=== PATIENT | female | born 1965 | race Caucasian/White ===

== ENCOUNTER 2016-08-29 11:30 | Emergency (ER) | payer MEDICAID ==
[2016-08-29 11:38] VITALS: BP 141/78
--- NOTE | 2016-08-29 12:21 | ER Document Report ---
HPI - HPI Patient complains to provider of: hip pain Pain Level: 5 Context: Patient is a 51-year-old female presents complaining of left hip pain as well as left lower back pain. Patient states that she was diagnosed with osteoarthritis with fibromyalgia and lupus. She's been following with hematology and her primary care physician. She states that [id number] Tylenol arthritis for her pain. States she is allergic to nonsteroidals. Patient able to ambulate but with limp otherwise stable to bear weight. He shouldn't presents with her medical records from her evaluation with her other physicians today. Show evidence of mild osteoarthritis as well as SI joint arthritis. Patient states that previously for this she was treated with cortisone injections with a recreation officer back in [place]. Patient states she' s been here for about 2 years and has not been giving her cortisone injections in his hip pain is gotten worse over the past 6 months. - REPRODUCTIVE Reproductive: DENIES: : - DERM Skin Color: Normal Past Medical History - Social History Smoking Status: Never Smoker Family History: Reviewed & Not Pertinent Patient has suicidal ideation: No Patient has homicidal ideation: No - Past Medical History Cardiac Medical History: Denies: Hx Coronary Artery Disease, Hx Heart Attack, Hx Hypertension Pulmonary Medical History: Reports: Hx Asthma - Allergic reaction asthma Denies: Hx Bronchitis, Hx COPD, Hx Pneumonia Neurological Medical History: Denies: Hx Cerebrovascular Accident, Hx Seizures Renal/ Medical History: Denies: Hx Peritoneal Dialysis Musculoskeltal Medical History: Reports Hx Arthritis - Spine, joints - Immunizations Immunizations up to date: Yes Hx Diphtheria, Pertussis, Tetanus Vaccination: Yes Vertical Provider Document - CONSTITUTIONAL Agree With Documented VS: Yes Exam Limitations: No Limitations General Appearance: WD/WN, No Apparent Distress Notes: PHYSICAL EXAM GENERAL: Alert, interacts well. HEAD: Normocephalic, atraumatic. EYES: Pupils equal, round, and reactive to light. Extraocular movements intact. ENT: Oral mucosa moist, tongue midline. NECK: Full range of motion. Supple. Trachea midline. LUNGS: Clear to auscultation bilaterally, no wheezes, rales, or rhonchi. No respiratory distress. HEART: Regular rate and rhythm. No murmurs, gallops, or rubs. ABDOMEN: Soft, nondistended, nontender. No guarding, rebound, or rigidity.. Bowel sounds present in all 4 quadrants. EXTREMITIES: Moves all 4 extremities spontaneously. No edema, radial and dorsalis pedis pulses 2/4 bilaterally. No cyanosis. Strength 5 out of 5 in bilateral lower extremities. Patient able to ambulate but with pain in her left hip. Moderate pain to palpation. No evidence of deformity, leg shortening. NEUROLOGICAL: Alert and oriented x4. Normal speech. PSYCH: Normal affect, normal mood. SKIN: Warm, dry, normal turgor. No rashes or lesions noted. - INFECTION CONTROL TRAVEL OUTSIDE OF THE U.S. IN LAST 30 DAYS: No - RESPIRATORY O2 Sat by Pulse Oximetry: 96 Course - Re-evaluation Re-evalutation: 08/29/16 13:56 Patient is a 51-year-old female presents with chronic leg pain. Has been diagnosed with history of osteoarthritis, fibromyalgia and lupus. She is previously required cortisone injections from rheumatology to help manage her pain. Discussed with patient that we do not manage chronic pain in the emergency department and that she needs to follow up with her primary care provider. Given the patient has not had any new injury to this hip, she has pretty presented with an x-ray supporting Tari arthritis of this hip no further imaging is required to the emergency department today. - Vital Signs Vital signs: Temp Pulse Resp BP Pulse Ox 98.2 F 100 18 141/78 H 96 08/29/16 11:37 08/29/16 11:37 08/29/16 11:37 08/29/16 11:37 08/29/16 11:37 Discharge - Discharge Clinical Impression: Hip pain, chronic Condition: Good Disposition: HOME, SELF-CARE Instructions: Osteoarthritis ([facility]), Fibromyalgia ([facility]) Additional Instructions: -Please be sure to follow-up with your recreation officer, primary care physician -You need to make an appointment to be evaluated by orthopedics (Dr. Sergio Arnold ) and pain management (Dr. Reena Jimenez) -Please discuss with your fitness center about developing a program for low impact hip and low back strengthening Forms: Elevated Blood Pressure Referrals: JEREMÍAS JONES MD [ACTIVE STAFF] - Follow up as needed VALERY JIMENEZ MD [ACTIVE STAFF] - Follow up as needed (Pain management) SERGIO ARNOLD MD [ACTIVE STAFF] - Follow up as needed (Orthopedics)
== END 2016-08-29 12:29 | disposition home or self-care (01) ==
LOC: ER 11:30
DX: G89.29 Other chronic pain (principal); M25.552 Pain in left hip; M54.5 Low back pain
CPT/HCPCS: 99283

== ENCOUNTER 2016-11-22 19:48 | Emergency (ER) | payer SELFPAY ==
[2016-11-22] MEDS ORDERED: METHYLPREDNISOLONE INJ 125 MG/2 ML SDV IM ONE (21:21)
[2016-11-22] MEDS ORDERED: HYDROMORPHONE HCL INJ/PF 2 MG/ML AMPULE IM ONE (21:21)
--- NOTE | 2016-11-22 21:23 | ER Document Report ---
HPI - HPI Patient complains to provider of: left hip pain Pain Level: 5 Context: Patient is a 51-year-old female who comes emergency department for chief complaint of left hip pain. She states she has had this intermittently for about 8 months, was seen recently at [facility] and placed on a Medrol Dosepak and Percocet, she states that previously she has been given a shot of steroids and this helped but the current medications are not helping. She states she is waiting for her insurance to follow-up with orthopedics. She has had hip x- rays of the left hip which has shown arthritis. She also reports a history of lupus, fibromyalgia, she denies having a director patient or any current medications for this otherwise. She takes Cymbalta from her psychiatrist. She also states that they recently noticed that her left leg is longer, she states she thinks it is getting longer. She denies fever, chills, redness, heat to the area, swelling, or other abnormal symptoms other than pain in the hip. - REPRODUCTIVE LMP: na Reproductive: DENIES: : - DERM Skin Color: [place] Past Medical History - General Information source: Patient - Social History Smoking Status: Never Smoker Frequency of alcohol use: None Drug Abuse: None Lives with: Family Family History: Reviewed & Not Pertinent Patient has suicidal ideation: No Patient has homicidal ideation: No - Past Medical History Cardiac Medical History: Denies: Hx Coronary Artery Disease, Hx Heart Attack, Hx Hypertension Pulmonary Medical History: Reports: Hx Asthma - Allergic reaction asthma Denies: Hx Bronchitis, Hx COPD, Hx Pneumonia Neurological Medical History: Denies: Hx Cerebrovascular Accident, Hx Seizures Renal/ Medical History: Denies: Hx Peritoneal Dialysis Musculoskeltal Medical History: Reports Hx Arthritis - Spine, joints Surgical Hx: Negative - Immunizations Immunizations up to date: Yes Hx Diphtheria, Pertussis, Tetanus Vaccination: Yes Vertical Provider Document - CONSTITUTIONAL General Appearance: Mild Distress - patient does appear to be in pain, shifting on the bed, Obese - INFECTION CONTROL TRAVEL OUTSIDE OF THE [place] IN LAST 30 DAYS: No - HEENT HEENT: Atraumatic, Normocephalic - NECK Neck: Normal Inspection - RESPIRATORY Respiratory: Breath Sounds Normal, No Respiratory Distress O2 Sat by Pulse Oximetry: 99 - CARDIOVASCULAR Cardiovascular: Regular Rate, Regular Rhythm, Tachycardia - GI/ABDOMEN Gastrointestinal: Abdomen Soft, Abdomen Non-Tender - BACK Back: Normal Inspection - No tenderness of the back, no saddle anesthesia, normal distal vascular exam of extremities, normal upper and lower extremity strength and range of motion including left hip after pain medication was given - MUSCULOSKELETAL/EXTREMETIES Musculoskeletal/Extremeties: Tender - There is tenderness over the left anterior thigh and up into the left groin - NEURO Level of Consciousness: Awake, Alert Motor/Sensory: No Motor Deficit, No Sensory Deficit - DERM Integumentary: Warm, Dry, No Rash Course - Re-evaluation Re-evalutation: Evaluation after pain medication patient is sitting up in bed, smiling, states she feels good. Patient does appear to have honest pain of the left hip, she also does appear to have a slightly longer left leg than right leg, patient has never noticed this before. Suspect patient has developed arthritis in the left hip because of this. Patient does have a limp in the left hip with walking. Discussed with patient further, patient will have a CAT scan performed of the hip to rule out underlying fracture. Scan shows degenerative breakdown but no occult fracture. Patient was provided with a copy of the scan, she was referred to orthopedics, she states that she will definitely follow-up. Patient also referred to podiatry. Return precautions, patient will be provided with some medication temporarily for this pending follow-up, patient states understanding and agreement. - Vital Signs Vital signs: Temp Pulse Resp BP Pulse Ox 98.2 F 126 H 18 160/106 H 99 11/22/16 19:51 11/22/16 19:51 11/22/16 19:51 11/22/16 19:51 11/22/16 19:51 - Diagnostic Test Radiology reviewed: Image reviewed, Reports reviewed Discharge - Discharge Clinical Impression: Left hip pain Condition: Stable Disposition: HOME, SELF-CARE Additional Instructions: Take prednisone dose as prescribed, rest and ice the hip. Follow up with Orthopedics as directed, may also need a Masticator, see the referral (questionable leg length problem, may need elevation on the right to fix hip pains on the left). Return to the ED for any concerning symptoms - numbness, fever, redness, swelling, etc. Prescriptions: Hydrocodone/Acetaminophen [Catarina 5-325 mg Tablet] 1 - 2 tab PO ASDIR #15 tablet Prednisone [Deltasone 10 mg Tablet] 10 mg PO ASDIR PRN #21 tablet PRN Reason: Referrals: KISHOR PITTS DPM [ACTIVE STAFF] - Follow up as needed SHORTY JENNINGS MD [ACTIVE STAFF] - Follow up as needed
[2016-11-22] MEDS ORDERED: HYDROCODONE/ACETAMINOPHEN 5-325 MG 6 TAB/DSPK PO PRN (22:57)
--- NOTE | 2016-11-22 23:36 | RADIOLOGY REPORT (SQ) ---
EXAM DESCRIPTION: CT LT LOWER EXTREMITY WITHOUT COMPLETED DATE/TIME: 11/22/2016 11:24 pm REASON FOR STUDY: severe left hip pain; ? fracture COMPARISON: None. TECHNIQUE: CT scan of the left hip performed without intravenous or oral contrast. Images reviewed with soft tissue and bone windows. Reconstructed coronal and sagittal MPR images reviewed. All imag es stored on PACS. All CT scanners at this facility use dose modulation, iterative reconstruction, and/or weight based d osing when appropriate to reduce radiation dose to as low as reasonably achievable (ALARA). [facility]: Dose Right [facility]: CareDose [facility]: Dose Right [facility]: Teradose 4D [facility]: Smart Waddle RADIATION DOSE: Up-to-date CT equipment and radiation dose reduction techniques were employed. CTDIv ol: 36.2 mGy. DLP: 1343 mGy-cm. mGy. LIMITATIONS: None. FINDINGS: PELVIC BONES: No acute fracture. No worrisome bone lesions. VISUALIZED SPINE: No acute findings. SYMPTOMATIC HIP: No acute fracture or dislocation. No worrisome bone lesions. Background of moderate degenerative changes with subcortical cystic changes of the acetabulum. OPPOSITE HIP: Not included in the examination. PELVIC SOFT TISSUES: No significant findings. EXTRAPELVIC SOFT TISSUES: No significant findings. OTHER: No other significant finding. IMPRESSION: No evidence of acute osseous injury. Background of moderate degenerative changes with s ubcortical cystic degeneration of the acetabulum, indicating overlying cartilaginous injury. TECHNICAL DOCUMENTATION: JOB ID: [id number] Quality ID # [id number]: Final reports with documentation of one or more dose reduction techniques (e.g., Au tomated exposure control, adjustment of the mA and/or kV according to patient size, use of iterative reconstruction technique) 2010 [employer]- All Rights Reserved
[2016-11-23 00:41] VITALS: BP 128/78
== END 2016-11-23 00:40 | disposition home or self-care (01) ==
LOC: ER 19:48
DX: M25.552 Pain in left hip (principal)
CPT/HCPCS: 99284; 96372; 96374; 73700; J2930; J1170

== ENCOUNTER 2017-05-04 20:47 | Emergency (ER) | payer OTHER ==
[2017-05-04] MEDS ORDERED: ONDANSETRON HCL INJ/PF 4 MG/2 ML SDV IV ONE (23:23)
--- NOTE | 2017-05-04 23:28 | ER Document Report ---
HPI - HPI Pain Level: 5 Notes: Patient is a 51-year-old female with a history of fibromyalgia and lupus ( "dormant") who presents ED complaining of abdominal pain and lower back pain 2 days. Patient states that she has had nausea as well without any vomiting as well as urinary frequency. Patient believes that most of her abdominal pain is in her mid to upper abdomen. Patient states that food intake increases her nausea. Patient states that her back and abd pain is a dull pain. Pt states she can feel the low back pain radiate around her abd as well. Last BM was 4 days ago. Pt states she only has 1 BM every week +/-. Surgical history significant for tubal ligation. Patient denies any other significant past medical history. Denies any headache, fever, URI, sore throat, chest pain, palpitations, syncope, cough, shortness of breath, wheeze, dyspnea, diarrhea, melena, hematochezia, urinary retention, dysuria, hematuria, numbness/tingling, saddle anesthesia, muscle paralysis/weakness, or rash. I have treated and performed a rapid initial assessment of this patient. A comprehensive ED assessment and evaluation of the patient, analysis of test results and completion of medical decision making process will be conducted by additional ED providers. - REPRODUCTIVE Reproductive: DENIES: : Past Medical History - Social History Smoking Status: Never Smoker Chew tobacco use (# tins/day): No Frequency of alcohol use: Occasional Drug Abuse: None Family History: Reviewed & Not Pertinent Patient has suicidal ideation: No Patient has homicidal ideation: No - Past Medical History Cardiac Medical History: Denies: Hx Coronary Artery Disease, Hx Heart Attack, Hx Hypertension Pulmonary Medical History: Reports: Hx Asthma - Allergic reaction asthma Denies: Hx Bronchitis, Hx COPD, Hx Pneumonia Neurological Medical History: Denies: Hx Cerebrovascular Accident, Hx Seizures Renal/ Medical History: Denies: Hx Peritoneal Dialysis Musculoskeltal Medical History: Reports Hx Arthritis - Spine, joints - Immunizations Immunizations up to date: Yes Hx Diphtheria, Pertussis, Tetanus Vaccination: Yes Vertical Provider Document - INFECTION CONTROL TRAVEL OUTSIDE OF THE [place]. IN LAST 30 DAYS: No - RESPIRATORY O2 Sat by Pulse Oximetry: 99 Course - Vital Signs Vital signs: Temp Pulse Resp BP Pulse Ox 97.4 F 109 H 24 H 141/67 H 99 05/04/17 20:53 05/04/17 20:53 05/04/17 20:53 05/04/17 20:53 05/04/17 20:53
[2017-05-04] MEDS ORDERED: NORMAL SALINE 1000 ML 1,000 ML IV ONE (23:29)
--- NOTE | 2017-05-04 23:29 | ER Document Report ---
ED Medical Screen (RME) - General Chief Complaint: Back Pain Stated Complaint: BACK PAIN Time Seen by Provider: 05/04/17 23:22 TRAVEL OUTSIDE OF THE [place]. IN LAST 30 DAYS: No - HPI Notes: 05/04/17 23:29 Patient is a 51-year-old female with a history of fibromyalgia and lupus ( "dormant") who presents ED complaining of abdominal pain and lower back pain 2 days. Patient states that she has had nausea as well without any vomiting as well as urinary frequency. Patient believes that most of her abdominal pain is in her mid to upper abdomen. Patient states that food intake increases her nausea. Patient states that her back and abd pain is a dull pain. Pt states she can feel the low back pain radiate around her abd as well. Last BM was 4 days ago. Pt states she only has 1 BM every week +/-. Surgical history significant for tubal ligation. Patient denies any other significant past medical history. Denies any headache, fever, URI, sore throat, chest pain, palpitations, syncope, cough, shortness of breath, wheeze, dyspnea, diarrhea, melena, hematochezia, urinary retention, dysuria, hematuria, numbness/tingling, saddle anesthesia, muscle paralysis/weakness, or rash. I have treated and performed a rapid initial assessment of this patient. A comprehensive ED assessment and evaluation of the patient, analysis of test results and completion of medical decision making process will be conducted by additional ED providers. - Related Data Allergies/Adverse Reactions: aspirin [Aspirin] Allergy (Severe, Verified 05/04/17 20:48) Anaphylaxis NSAIDS (Non-Steroidal Anti-Inflamma [Nsaids] Allergy (Severe, Verified 05/04/17 20:48) Anaphylaxis Past Medical History - Social History Chew tobacco use (# tins/day): No Frequency of alcohol use: Occasional Drug Abuse: None - Past Medical History Cardiac Medical History: Denies: Hx Coronary Artery Disease, Hx Heart Attack, Hx Hypertension Pulmonary Medical History: Reports: Hx Asthma - Allergic reaction asthma Denies: Hx Bronchitis, Hx COPD, Hx Pneumonia Neurological Medical History: Denies: Hx Cerebrovascular Accident, Hx Seizures Renal/ Medical History: Denies: Hx Peritoneal Dialysis Musculoskeltal Medical History: Reports Hx Arthritis - Spine, joints - Immunizations Immunizations up to date: Yes Hx Diphtheria, Pertussis, Tetanus Vaccination: Yes Physical Exam - Vital signs Vitals: Temp Pulse Resp BP Pulse Ox 97.4 F 109 H 24 H 141/67 H 99 05/04/17 20:53 05/04/17 20:53 05/04/17 20:53 05/04/17 20:53 05/04/17 20:53 - Respiratory Respiratory status: No respiratory distress Breath sounds: Normal - Cardiovascular Rhythm: Regular Heart sounds: Normal auscultation Course - Vital Signs Vital signs: Temp Pulse Resp BP Pulse Ox 97.4 F 109 H 24 H 141/67 H 99 05/04/17 20:53 05/04/17 20:53 05/04/17 20:53 05/04/17 20:53 05/04/17 20:53
[2017-05-04 23:41] LABS: ABSOLUTE BASOPHILS # (AUTO) 0.2 10^3/uL (0.0-0.2); ABSOLUTE EOSINOPHILS # (AUTO) 0.1 10^3/uL (0.0-0.6); ABSOLUTE LYMPHOCYTES (AUTO) 4.3 10^3/uL (0.5-4.7); ABSOLUTE MONOCYTES (AUTO) 1.4 10^3/uL (0.1-1.4); ABSOLUTE NEUT (AUTO) 8.6 10^3/uL (1.7-8.2); BASOPHILS % (AUTO) 1.1 % (0-2); EOSINOPHILS % (AUTO) 0.9 % (0-6); HEMATOCRIT 38.5 % (36.0-47.0); HEMOGLOBIN 12.6 g/dL (12.0-15.5); HGB HCT DIFFERENCE -0.7; LYMPHOCYTES % (AUTO) 29.6 % (13-45); MEAN CORPUSCULAR HEMOGLOBIN 26.1 pg (27.0-33.4); MEAN CORPUSCULAR HGB CONC 32.6 g/dL (32.0-36.0); MEAN CORPUSCULAR VOLUME 80 fl (80-97); MONOCYTES % (AUTO) 9.5 % (3-13); RED BLOOD COUNT 4.82 10^6/uL (3.72-5.28); SEGMENTED NEUTROPHILS % (AUTO) 58.9 % (42-78); WHITE BLOOD COUNT 14.6 10^3/uL (4.0-10.5)
[2017-05-05] LABS: ALANINE AMINOTRANSFERASE 28 U/L (9-52); ALBUMIN 4.4 g/dL (3.5-5.0); ALKALINE PHOSPHATASE 106 U/L (38-126); ANION GAP 11 (5-19); ASPARTATE AMINO TRANSFERASE 29 U/L (14-36); BILIRUBIN,DIRECT 0.4 mg/dL (0.0-0.4); BILIRUBIN,TOTAL 0.4 mg/dL (0.2-1.3); BLOOD UREA NITROGEN 11 mg/dL (7-20); CALCIUM 9.6 mg/dL (8.4-10.2); CARBON DIOXIDE 25 mmol/L (22-30); CHLORIDE 103 mmol/L (98-107); CREATININE RESULT 0.88 mg/dL (0.52-1.25); GLUCOSE 116 mg/dL (75-110); LIPASE 127.8 U/L (23-300); POTASSIUM 4.1 mmol/L (3.6-5.0); SODIUM 139.2 mmol/L (137-145); TOTAL PROTEIN 8.2 g/dL (6.3-8.2)
[2017-05-05] MEDS ORDERED: MORPHINE SULFATE IR 15 MG TABLET PO ONE (00:37)
[2017-05-05] MEDS ORDERED: LIDOCAINE 5% (700 MG) TRANSDERMAL ADH..PATCH TP ONE (00:37)
--- NOTE | 2017-05-05 00:39 | ER Document Report ---
ED General - General Chief Complaint: Back Pain Stated Complaint: BACK PAIN Time Seen by Provider: 05/04/17 23:22 Notes: Patient is a 51-year-old female with past medical history of "dormant" lupus and fibromyalgia who presents complaining of low back pain. Patient describes it as a severe, constant, throbbing pain to her low back that started this morning has been unchanged since onset. Moving worsens the pain. Nothing improves the pain. She states she has a history of similar back pain with flares of her fibromyalgia in the past. She does however note that she also has intermittent generalized abdominal pain with his back pain and that is not typical for her. She denies any associated nausea, vomiting, or diaphoresis. No diarrhea. No chest pain. She has not seen her primary doctor regarding today's concerns. She notes that she has not had a bowel movement in over 1 week. TRAVEL OUTSIDE OF THE U.S. IN LAST 30 DAYS: No - Related Data Allergies/Adverse Reactions: aspirin [Aspirin] Allergy (Severe, Verified 05/04/17 20:48) Anaphylaxis NSAIDS (Non-Steroidal Anti-Inflamma [Nsaids] Allergy (Severe, Verified 05/04/17 20:48) Anaphylaxis Past Medical History - General Information source: Patient - Social History Smoking Status: Never Smoker Chew tobacco use (# tins/day): No Frequency of alcohol use: Occasional Drug Abuse: None Lives with: Spouse/Significant other Family History: Reviewed & Not Pertinent Patient has suicidal ideation: No Patient has homicidal ideation: No - Past Medical History Cardiac Medical History: Denies: Hx Coronary Artery Disease, Hx Heart Attack, Hx Hypertension Pulmonary Medical History: Reports: Hx Asthma - Allergic reaction asthma Denies: Hx Bronchitis, Hx COPD, Hx Pneumonia Neurological Medical History: Denies: Hx Cerebrovascular Accident, Hx Seizures Renal/ Medical History: Denies: Hx Peritoneal Dialysis Musculoskeltal Medical History: Reports Hx Arthritis - Spine, joints - Immunizations Immunizations up to date: Yes Hx Diphtheria, Pertussis, Tetanus Vaccination: Yes Review of Systems - Review of Systems Notes: Constitutional: Negative for fever. HENT: Negative for sore throat. Eyes: Negative for visual changes. Cardiovascular: Negative for chest pain. Respiratory: Negative for shortness of breath. Gastrointestinal: Positive for abdominal pain Genitourinary: Negative for dysuria. Musculoskeletal: Positive for back pain. Skin: Negative for rash. Neurological: Negative for headaches, weakness or numbness. 10 point ROS negative except as marked above and in HPI. Physical Exam - Vital signs Vitals: Temp Pulse Resp BP Pulse Ox 97.4 F 109 H 24 H 141/67 H 99 05/04/17 20:53 05/04/17 20:53 05/04/17 20:53 05/04/17 20:53 05/04/17 20:53 Interpretation: Tachycardic Notes: PHYSICAL EXAMINATION: GENERAL: Well-appearing, well-nourished and in no acute distress. HEAD: Atraumatic, normocephalic. EYES: Pupils equal round and reactive to light, extraocular movements intact, sclera anicteric, conjunctiva are normal. ENT: nares patent, oropharynx clear without exudates. Moist mucous membranes. NECK: Normal range of motion, supple without lymphadenopathy LUNGS: Breath sounds clear to auscultation bilaterally and equal. No wheezes rales or rhonchi. HEART: Regular rate and rhythm without murmurs ABDOMEN: Soft, nontender, normoactive bowel sounds. No guarding, no rebound. No masses appreciated. EXTREMITIES: Normal range of motion, no pitting or edema. No cyanosis. Back: Midline spinal tenderness to the bilateral shanice-umbar spine without step- offs or deformities. NEUROLOGICAL: 5 out of 5 strength both distally and proximally bilateral lower extremities. 2+ patellar reflexes bilaterally. No clonus. Sensation grossly intact in the bilateral lower extremities. Patient is able to ambulate without difficulty. PSYCH: Normal mood, normal affect. SKIN: Warm, Dry, normal turgor, no rashes or lesions noted. Course - Re-evaluation Re-evalutation: 05/05/17 00:38 Patient presents with mid low back pain that has been constant since onset earlier this morning. No bowel or bladder incontinence, no neurologic deficits , no ambulatory limitation. Patient is complaining of the pain intermittently radiates into her abdomen but has no focal abdominal tenderness on examination. Clinical history and exam are not consistent with an acute biliary pathology, pancreatitis, mesenteric ischemia, bowel obstruction or bowel perforation. Nephrolithiasis is also on the differential versus possible acute pyelonephritis. Awaiting the results of the urinalysis. Laboratories are otherwise unremarkable. No indication for acute imaging at this time as I do not suspect any acute life-threatening pathology would be better clarify the CT imaging the abdomen and pelvis. Will symptomatically treat and reassess 05/05/17 03:40 CT does not show any acute or life-threatening pathology but does show several findings that will require follow-up as an outpatient including inflammation of the pain celiac access. Lumbar vertebra are normal. Patient has been informed with the CT scan report and provided a copy for follow-up with her primary care doctor. At this time will discharge with return precautions and follow-up recommendations. Verbal discharge instructions given a the bedside and opportunity for questions given. Medication warnings reviewed. Patient is in agreement with this plan and has verbalized understanding of return precautions and the need for primary care follow-up in the next 24-72 hours. - Vital Signs Vital signs: Temp Pulse Resp BP Pulse Ox 97.4 F 109 H 18 132/94 H 95 05/04/17 20:53 05/04/17 20:53 05/05/17 02:04 05/05/17 02:04 05/05/17 02:04 - Laboratory Result Diagrams: 05/04/17 23:25 05/04/17 23:25 Laboratory results interpreted by me: 05/04/17 05/04/17 05/05/17 23:25 23:25 01:05 WBC 14.6 H MCH 26.1 L Absolute Neutrophils 8.6 H Glucose 116 H Urine Ketones TRACE H Discharge - Discharge Clinical Impression: Low back pain Qualifiers: Chronicity: acute Back pain laterality: bilateral Sciatica presence: without sciatica Qualified Code(s): M54.5 - Low back pain Abdominal pain Qualifiers: Abdominal location: generalized Qualified Code(s): R10.84 - Generalized abdominal pain Condition: Good Disposition: HOME, SELF-CARE Additional Instructions: Your labs and imaging today are overall unremarkable but as we have discussed there are several findings. CT scan should be followed up by your primary care physician. Please return to the emergency department if you develop persistent vomiting, worsening of your pain, fever, shortness of breath, pass out, or any other symptoms that are worrisome to you. Please follow-up with your primary doctor within the next 1-2 days.
[2017-05-05 01:28] LABS: APPEARANCE,URINE SLIGHTLY-CLOUDY; BILIRUBIN,URINE NEGATIVE (NEGATIVE); GLUCOSE, URINE NEGATIVE (NEGATIVE); KETONES,URINE TRACE mg/dL (NEGATIVE); LEUKOCYTE ESTERASE,URINE NEGATIVE (NEGATIVE); NITRITE,URINE NEGATIVE (NEGATIVE); PROTEIN,URINE NEGATIVE (NEGATIVE); URINE SPECIFIC GRAVITY 1.028; UROBILINOGEN,URINE NEGATIVE mg/dL (<2.0)
[2017-05-05 02:28] VITALS: BP 132/94
--- NOTE | 2017-05-05 03:03 | RADIOLOGY REPORT (SQ) ---
EXAM DESCRIPTION: CT ABDOMEN AND PELVIS WITH CONTRAST CLINICAL HISTORY: Right and left lower quadrant pain. COMPARISON: None Available. TECHNIQUE: CT of the abdomen and pelvis are performed during IV bolus administration of 100 mL of Isovue 300. DLP: 2122.64 mGycm FINDINGS: Abdomen: The liver has normal size and density. No intrahepatic mass or biliary dilatation. No calcified gallstones. Small cyst in the tail of the pancreas measuring 1.1 cm. The kidneys have normal size and contour without evidence of solid mass or hydronephrosis. The aorta and IVC have normal caliber and position. Inflammatory fat stranding adjacent to the celiac access as well as wall thickening of the celiac artery. No free intraperitoneal air. Small hiatal hernia. Pelvis: Uterus and ovaries are not enlarged. Tubal clips identified bilaterally. Urinary bladder is unremarkable. No free pelvic fluid or lymphadenopathy. No dilated loops of large or small bowel. Normal appendix. The visualized lung bases are clear. No destructive bone lesions identified. Limbus L5 vertebral body. Mild loss of intervertebral disc height at L4/5 and L5/S1 with facet arthropathy. IMPRESSION: 1. Wall thickening of the celiac access with adjacent inflammatory change. This suggests vasculitis/vasculopathy. Correlation for clinical history of autoimmune disease recommended. 2. 1.4 cm cystic abnormality in the tail of the pancreas. This may represent a simple pancreatic cyst however cystic pancreatic neoplasm is also a possibility. Continued follow-up recommended. 3. Small hiatal hernia. This exam was performed according to our departmental dose-optimization program, which includes automated exposure control, adjustment of the mA and/or kV according to patient size and/or use of iterative reconstruction technique.
== END 2017-05-05 04:02 | disposition home or self-care (01) ==
LOC: ER 20:47
DX: M54.5 Low back pain (principal); R10.84 Generalized abdominal pain; Z88.6 Allergy status to analgesic agent
CPT/HCPCS: 99284; 96361; 96374; 36415; 87086; 83690; 85025; 80053; 81001; 74177; J2405; J7030

== ENCOUNTER 2018-06-21 22:45 | Emergency (ER) | payer OTHER ==
[2018-06-21 23:00] VITALS: BP 130/80
== END 2018-06-21 23:35 | disposition left against medical advice (07) ==
LOC: ER 22:45
DX: Z53.21 Procedure and treatment not carried out due to patient leaving prior to being seen by health care provider (principal)

== ENCOUNTER → 2019-10-12 | Outpatient (CLI) | payer BC, OTHER ==
[2019-10-12 12:47] VITALS: BP 110/82
--- NOTE | 2019-10-12 12:47 | ER RDC ASSESSMENT REPORT ---
Intake - In the Last 14 days Have you traveled outside [place]?: No Have you been in close contact with someone CONFIRMED: No Worked in Healthcare?: No - Symptoms Subjective Fever([place] feverish): Yes Chills: Yes Muscule Aches: Yes Runny Nose: No Sore Throat: No Cough (New or worsening chronic cough): Yes --How many day(s)?: Dry cough since last week Shortness of breath: Yes Nausea or Vomiting: Yes --How many day(s)?: Nausea no vomiting Headache: Yes Abdominal Pain: No Diarrhea(3 or more loose stools in last 24 hours): Yes - Do you have any of the following Chronic lung disease: Asthma or emphysema or COPD: Yes Chronic Lung Disease Comment: Asthma Cystic Fibrosis: No Diabetes: No High Blood Pressure: No Cardiovascular Disease: No Chronic Kidney Disease: No Chronic Liver Disease: No Chronic blood disorder like Sickle Cell Disease: No Weak immune system due to disease or medication: No Neurologic condition that limits movement: No Developmental delay - Moderate to Severe: No Recent (within past 2 weeks) or current : No Morbid Obesity (>100 pounds over ideal weight): No Obesity Comment: Height feet 2 inches weight 208 pounds Other Comment: Potential history of lupus - Objective Temperature: 97.0 F Pulse Rate: 81 Respiratory Rate: 20 Blood Pressure: 110/82 O2 Sat by Pulse Oximetry: 98 Objective: Given above, testing performed: If Testing Performed: Test Specimen Type Sent to General - General Information source: Patient Notes: Here today at [facility] for COVID testing. Sees Dr. Landry with [facility] as PCP. HAs been having respirartory problems since last week and PCP wants to check for COVID. Patient's asthma usually flairs at this time of year. Has been using inhalors for relief. - Related Data Allergies/Adverse Reactions: aspirin [Aspirin] Allergy (Severe, Verified 05/04/17 20:48) Anaphylaxis NSAIDS (Non-Steroidal Anti-Inflamma [Nsaids] Allergy (Severe, Verified 05/04/17 20:48) Anaphylaxis Past Medical History - General Information source: Patient - Social History Smoking Status: Never Smoker Family History: Reviewed & Not Pertinent - Past Medical History Cardiac Medical History: Denies: Hx Coronary Artery Disease, Hx Heart Attack, Hx Hypertension Pulmonary Medical History: Reports: Hx Asthma - Allergic reaction asthma Denies: Hx Bronchitis, Hx COPD, Hx Pneumonia Neurological Medical History: Denies: Hx Cerebrovascular Accident, Hx Seizures Renal/ Medical History: Denies: Hx Peritoneal Dialysis Musculoskeletal Medical History: Reports Hx Arthritis - Spine, joints Physical Exam - General General appearance: Appears well, Alert In distress: None Notes: PHYSICAL EXAMINATION: GENERAL: Well-appearing and in no acute distress. HEAD: Atraumatic, normocephalic. EYES: sclera anicteric, conjunctiva are normal. ENT: nares patent. Moist mucous membranes. NECK: Normal range of motion, supple without lymphadenopathy LUNGS: CTAB and equal. No wheezes rales or rhonchi. Resp even unlabored. Lung sounds clear. HEART: Regular rate and rhythm without murmurs ABDOMEN: Soft, nontender, normal bowel sounds, no guarding. EXTREMITIES: No cyanosis. NEUROLOGICAL: Normal speech. PSYCH: Normal mood, normal affect. SKIN: Warm, Dry, normal turgor, Diagnostic Results Laboratory Results: Patient informed of negative rapid strep and negative rapid flu results. pending strep culture and covid with testing results. Provided instructions regarding COVID to include: As a person under investigation for Covid 19, the [place] department of Health and Human Services, division of public health advises you to adhere to the following guidance until your test results are reported to you. If your test result is positive, you will receive additional information from your provider and your local health department at that time. Remain at home until you are cleared by the health provider or public health authorities. Keep a log of visitors to your home, notify any visitors to your home of your isolation status. If you plan to move to a new address or leave the [facility], notify the local health department in your County. Call your doctor or seek care if you have an urgent medical need. Before seeking medical care, call ahead to get instructions from the provider before arriving at the medical office clinic or hospital. Notify them that you are being tested for the virus that causes Covid 19 so that arrangements can be made, as necessary, to prevent transmission to others in the healthcare setting. Next, notify the local health department in your [facility]. If a medical emergency arises and you need to call 911, inform the first responders that you are being tested for the virus that causes Covid 19. Next, notify the local health department in your county. Patient Education/Counseling Counseling/Education: Patient presents with upper respiratory symptoms worrisome for possible Covid 19. Patient does not have emergency worring symptoms such as difficulty breathing, shortness of breath, chest pain, pressure, confusion or cyanosis. Patient appears suitable for discharge. Patient instructed to follow up with PCP Dr. Landry today. TO ED For persisent or worsening symptoms. Patient's vital signs are stable and patient is nontoxic in appearance. Good return precautions have been discussed with patient, patient verbalized understanding and is agreeable with discharge plan of care at this time. RDC Discharge - Discharge Clinical Impression: COVID - 19 SCREENING Condition: Stable Disposition: Home; Selfcare
[2019-10-12 15:32] LABS: A TYPE INFLUENZA AG NEGATIVE (NEGATIVE); B INFLUENZA AG NEGATIVE (NEGATIVE)
== END ==
LOC: RDC 11:44
PROVIDERS: ATTEND Nurse Practitioner Family
DX: Z20.828 Contact with and (suspected) exposure to other viral communicable diseases (principal); J06.9 Acute upper respiratory infection, unspecified; R50.9 Fever, unspecified; R05 Cough; R06.02 Shortness of breath; R11.0 Nausea; R51 Headache; R19.7 Diarrhea, unspecified; M79.10 Myalgia, unspecified site; J45.909 Unspecified asthma, uncomplicated; Z88.6 Allergy status to analgesic agent; Z88.8 Allergy status to other drugs, medicaments and biological substances
CPT/HCPCS: 87070; 87635; 87804; 87880

== ENCOUNTER → 2020-01-24 | Outpatient (CLI) | payer BC ==
[2020-01-24 16:18] LABS: ABSOLUTE BASOPHILS # (AUTO) 0.1 10^3/uL (0.0-0.2); ABSOLUTE EOSINOPHILS # (AUTO) 0.1 10^3/uL (0.0-0.6); ABSOLUTE LYMPHOCYTES (AUTO) 3.8 10^3/uL (0.5-4.7); ABSOLUTE MONOCYTES (AUTO) 0.9 10^3/uL (0.1-1.4); ABSOLUTE NEUT (AUTO) 5.2 10^3/uL (1.7-8.2); EOSINOPHILS % (AUTO) 0.9 % (0-6); HEMATOCRIT 38.8 % (36.0-47.0); HEMOGLOBIN 12.6 g/dL (12.0-15.5); LYMPHOCYTES % (AUTO) 37.6 % (13-45); MEAN CORPUSCULAR HEMOGLOBIN 24.9 pg (27.0-33.4); MEAN CORPUSCULAR HGB CONC 32.4 g/dL (32.0-36.0); MEAN CORPUSCULAR VOLUME 77 fl (80-97); MONOCYTES % (AUTO) 8.9 % (3-13); PLATELET COUNT 461 10^3/uL (150-450); RED BLOOD COUNT 5.04 10^6/uL (3.72-5.28); RED CELL DISTRIBUTION WIDTH 16.4 % (11.5-14.0); SEGMENTED NEUTROPHILS % (AUTO) 51.6 % (42-78); TOTAL CELLS COUNTED % (AUTO) 100 %; WHITE BLOOD COUNT 10.1 10^3/uL (4.0-10.5)
[2020-01-24 16:53] LABS: FREE T3 4.11 pg/mL (2.77-5.27); FREE T4 (FREE THYROXINE) 0.94 ng/dL (0.78-2.19)
[2020-01-24 17:06] LABS: THYROID STIMULATING HORMONE 1.01 uIU/mL (0.47-4.68)
== END ==
LOC: OD 15:02
PROVIDERS: ATTEND Specialist
DX: N94.4 Primary dysmenorrhea (principal)
CPT/HCPCS: 36415; 83001; 84439; 84443; 84481; 85025

== ENCOUNTER → 2020-03-28 | Outpatient (CLI) | payer BC ==
--- NOTE | 2020-03-29 11:59 | WOMENS IMAGING REPORT ---
EXAM DESCRIPTION: BILAT SCREENING MAMMO W/CAD IMAGES COMPLETED DATE/TIME: 03/28/2020 11:56 am REASON FOR STUDY: Z12.31 ENCOUNTER FOR SCREENING MAMMOGRAM FOR MALIGNANT NEOPLASM OF BREAST Z12.31 ENCNTR SCREEN MAMMOGRAM FOR MALIGNANT NEOPLASM OF FRANCES COMPARISON: New baseline EXAM PARAMETERS: Standard craniocaudal and mediolateral oblique views of each breast recorded using digital acquisition. Read with the assistance of CAD. .FORMERLY [facility] - [employer] Version 9.2 LIMITATIONS: None. FINDINGS: No suspicious masses, suspicious calcifications or architectural distortion. No areas of c oncern. IMPRESSION: NEGATIVE MAMMOGRAM. BIRADS 1 BREAST DENSITY: a. The breasts are almost entirely fatty. BIRAD: ASSESSMENT: 1 NEGATIVE RECOMMENDATION: ROUTINE SCREENING Please continue yearly bilateral screening mammography/tomosynthesis in March 2021 COMMENT: The patient has been notified of the results by letter per [place] requirements. Additional no tification policies are in place for contacting patient with suspicious or incomplete findings. Quality ID #[id number]: The [employer] recommends an annual screening mammogram for women aged 40 years or over. This facility utilizes a reminder system to ensure that all patients receive reminder letters, and/or direct phone calls for appointments. This includes reminders for routine scr eening mammograms, diagnostic mammograms, or other Breast Imaging Interventions when appropriate. Th is patient will be placed in the appropriate reminder system. TECHNICAL DOCUMENTATION: FINDING NUMBER: (1) ASSESSMENT: (1) JOB ID: [id number] 2010 [employer]- All Rights Reserved Reading location - IP/workstation name: [email or web address]
== END ==
LOC: WI 11:39
PROVIDERS: ATTEND Specialist
DX: Z12.31 Encounter for screening mammogram for malignant neoplasm of breast (principal)
CPT/HCPCS: 77067

== ENCOUNTER 2020-03-30 06:23 | Day surgery (SDC) | payer BC ==
[2020-03-27 11:08] LABS: APPEARANCE,URINE SLIGHTLY-CLOUDY; BILIRUBIN,URINE NEGATIVE (NEGATIVE); COLOR,URINE YELLOW; GLUCOSE, URINE NEGATIVE (NEGATIVE); KETONES,URINE NEGATIVE (NEGATIVE); LEUKOCYTE ESTERASE,URINE NEGATIVE (NEGATIVE); NITRITE,URINE NEGATIVE (NEGATIVE); PROTEIN,URINE NEGATIVE (NEGATIVE)
--- NOTE | 2020-03-27 11:08 | RADIOLOGY REPORT (SQ) ---
EXAM DESCRIPTION: CHEST PA/LATERAL IMAGES COMPLETED DATE/TIME: 03/27/2020 9:34 am REASON FOR STUDY: PRE-OP COMPARISON: 10/15/2014 EXAM PARAMETERS: NUMBER OF VIEWS: two views TECHNIQUE: Digital Frontal and Lateral radiographic views of the chest acquired. RADIATION DOSE: NA LIMITATIONS: none FINDINGS: LUNGS AND PLEURA: No opacities, masses or pneumothorax. No pleural effusion. MEDIASTINUM AND HILAR STRUCTURES: No masses or contour abnormalities. HEART AND VASCULAR STRUCTURES: Heart normal size. No evidence for failure. BONES: No acute findings. HARDWARE: None in the chest. OTHER: No other significant finding. IMPRESSION: NO SIGNIFICANT RADIOGRAPHIC FINDING IN THE CHEST. TECHNICAL DOCUMENTATION: JOB ID: [id number] 2010 [employer]- All Rights Reserved Reading location - IP/workstation name: [email or web address]
[2020-03-27 11:14] LABS: HEMATOCRIT 37.5 % (36.0-47.0); HEMOGLOBIN 12.3 g/dL (12.0-15.5); MEAN CORPUSCULAR HEMOGLOBIN 25.5 pg (27.0-33.4); MEAN CORPUSCULAR HGB CONC 32.8 g/dL (32.0-36.0); MEAN CORPUSCULAR VOLUME 78 fl (80-97); PLATELET COUNT 398 10^3/uL (150-450); RED BLOOD COUNT 4.82 10^6/uL (3.72-5.28); RED CELL DISTRIBUTION WIDTH 16.4 % (11.5-14.0); WHITE BLOOD COUNT 8.6 10^3/uL (4.0-10.5)
[2020-03-27 11:36] LABS: ANION GAP 11 (5-19); BLOOD UREA NITROGEN 9 mg/dL (7-20); CALCIUM 9.6 mg/dL (8.4-10.2); CARBON DIOXIDE 24 mmol/L (22-30); CHLORIDE 105 mmol/L (98-107); GLUCOSE 142 mg/dL (75-110); POTASSIUM 4.7 mmol/L (3.6-5.0)
--- NOTE | 2020-03-27 16:46 | EKG REPORT ---
SEVERITY:- ABNORMAL ECG - SINUS RHYTHM LEFT ANTERIOR FASCICULAR BLOCK BORDERLINE T ABNORMALITIES, ANTERIOR LEADS : Confirmed by: Americo Fisher MD 27-Mar-2020 16:45:42
[~2020-03-30 06:23] MED LIST: CEFAZOLIN 1 GM/D5W RTU 1 GM/50 ML RTUPB IV ONE; FENTANYL CITRATE INJ/PF 100 MCG/2 ML AMPUL ONE; MIDAZOLAM 2 MG/2 ML INJ ONE; PROPOFOL INJ 200 MG/20 ML VIAL IV ONE
[2020-03-30] MEDS ORDERED: PROMETHAZINE HCL INJ 25 MG/1 ML VIAL IV PRN ×2 (06:57)
[2020-03-30] MEDS ORDERED: ONDANSETRON HCL INJ/PF 4 MG/2 ML SDV IV PRN (06:57)
[2020-03-30] MEDS ORDERED: MORPHINE SULFATE 10 MG/ML INJ IV PRN (06:57)
[2020-03-30] MEDS ORDERED: FENTANYL CITRATE INJ/PF 100 MCG/2 ML AMPUL IV PRN ×2 (06:57)
[2020-03-30] MEDS ORDERED: MEPERIDINE HCL/PF INJ 25 MG/1 ML DISP.SYRIN IV PRN (06:57)
[2020-03-30] MEDS ORDERED: DIPHENHYDRAMINE HCL 50 MG/ML VIAL IV PRN (06:57)
[2020-03-30] MEDS ORDERED: LIDOCAINE 1% INJ-PF (10 MG/ML) 30 ML SDV ONE (08:06)
[2020-03-30] MEDS ORDERED: ACETAMINOPHEN 1,000 MG/100 ML RTUPB IV ONE (08:37)
[2020-03-30] MEDS ORDERED: KETOROLAC TROMETHAMINE INJ/PF 30 MG/1 ML SDV ONE (08:37)
--- NOTE | 2020-03-30 08:37 | Operative Report ---
Operative Report DATE OF SURGERY: 03/30/20 PREOPERATIVE DIAGNOSIS: Perimenopausal bleeding POSTOPERATIVE DIAGNOSIS: Same OPERATION: Operative hysteroscopy, D&C SURGEON: RUY MENDEZ ANESTHESIA: LMAC TISSUE REMOVED OR ALTERED: Endometrium COMPLICATIONS: None ESTIMATED BLOOD LOSS: 5 mL INTRAOPERATIVE FINDINGS: Normal pelvis by pelvic exam. Bladder was left undrained. Uterine cervix was very stenotic and operatively dilated under direct visualization with the hysteroscope and the hydrostatic pressure. A normal endometrial cavity was thus delineated and sample done without difficulty. It appeared to be atrophic in nature. The stenotic cervix area appeared to be normal was dilated but may account for the ultrasound findings noted preoperatively PROCEDURE: Preoperatively the patient was counseled on the usual risk of bleeding infection anesthesia damage to other organs and tissues. She understands the need for surgery to delineate ultrasound findings and explained her abnormal bleeding. The usual risk of bleeding infection and anesthesia discussed. Patient is taken recovery in operating room and placed in modified lithotomy with her assistance due to her hips and examined under anesthesia after surgical timeout performed. Antibiotics given speculum was placed in the vagina 1% lidocaine was then infiltrated a paracervical fashion and the cervix was dilated to to admit at least intracervically the operative hysteroscope. The hysteroscope was then used to delineate the proper passage into the uterus which was continued with hydrostatic pressure and direct visualization as well as pressure using the the hysteroscope itself. The endometrial cavity thusly entered to the area Of the cavity was assessed, photographed and ultimately sampled with curettage. no lesions were noted in the endometrial cavity. At the completion procedure bleeding was nil patient taken recovery in stable condition
[2020-03-30] MEDS ORDERED: FENTANYL CITRATE INJ/PF 100 MCG/2 ML AMPUL ONE (08:39)
[2020-03-30] MEDS: FENTANYL CITRATE INJ/PF 100 MCG/2 ML AMPUL IV PRN ×2 (08:40→08:45)
[2020-03-30] MEDS ORDERED: DIPHENHYDRAMINE HCL 50 MG/ML VIAL ONE (09:28)
[2020-03-30 16:38] VITALS: BP 147/89
[2020-03-30] MEDS ORDERED: DIPHENHYDRAMINE HCL 50 MG/ML VIAL IV ONE (17:00)
== END 2020-03-30 10:37 | disposition home or self-care (01) ==
LOC: OROUT 06:23
PROVIDERS: ATTEND Specialist
DX: N92.4 Excessive bleeding in the premenopausal period (principal); N93.8 Other specified abnormal uterine and vaginal bleeding; N94.0 Mittelschmerz; M32.9 Systemic lupus erythematosus, unspecified; M79.7 Fibromyalgia; F31.9 Bipolar disorder, unspecified; K21.9 Gastro-esophageal reflux disease without esophagitis; Z79.899 Other long term (current) drug therapy; Z98.51 Tubal ligation status; Z03.818 Encounter for observation for suspected exposure to other biological agents ruled out
CPT/HCPCS: 93005; 86900; 86901; 36415; 86850; 85027; 81025; 80048; 81001; 88305 ×2; 71046; 93010; 00952; 58558; U0003; J2250; J0690; J1200; J3010; J3490; J2704; J0131; C9803; 87635; 952; J1885